=== PATIENT | male | born 1935 | race Hispanic/Latino ===

== ENCOUNTER 2020-01-13 13:04 | Emergency (ER) | payer MEDICARE ==
[2020-01-13 13:58] LABS: #Lymphocytes 0.7 thou/uL (1.20-3.40); #Monocytes 0.3 thou/uL (0.11-0.59); #Neutrophils 2.8 thou/uL (1.40-6.50); %Basophils 0.3 % (0.0-1.0); %Lymphocytes 18.5 % (21.0-51.0); %Monocytes 7.6 % (0.0-10.0); %Neutrophils 73.6 % (42.0-75.0); Hemoglobin 14.7 g/dL (14.0-18.0); Mean Corpuscular HGB CONC 34.7 g/dL (32.0-36.0); Mean Corpuscular Hemoglobin 32.4 pg (27.0-31.0); Mean Corpuscular Volume 93.4 fL (78.0-98.0); Mean Platelet Volume 7.8 fL (7.4-10.4); Platelet Count 98 thou/uL (130-400); RBC Distribution Width 11.4 % (11.5-14.5); Red Blood Cell (RBC) Count 4.55 mill/uL (4.70-6.10); White Blood Cell (WBC) Count 3.8 thou/uL (4.8-10.8)
[2020-01-13 14:01] LABS: ALT (SGPT) 11 U/L (8-55); AST (SGOT) 28 U/L (5-34); Albumin 3.8 g/dL (3.4-4.8); Alkaline Phosphatase 54 U/L (40-110); Anion Gap 17 mmol/L (10-20); BUN (Urea Nitrogen) 19 mg/dL (8.4-25.7); Bilirubin, Total 0.6 mg/dL (0.2-1.2); CK (CPK) 729 U/L (30-200); Calc. Creatinine Clearance 0 mL/min (70-130); Calcium 8.5 mg/dL (7.8-10.44); Carbon Dioxide 24 mmol/L (23-31); Chloride 102 mmol/L (98-107); Estimated GFR-MDRD 53; Globulin 3.4 g/dL (2.4-3.5); Glucose 113 mg/dL (83-110); Potassium 4.1 mmol/L (3.5-5.1); Protein, Total 7.2 g/dL (5.8-8.1); Sodium 139 mmol/L (136-145)
[2020-01-13 14:12] LABS: Large Platelets SLIGHT; MDiff Complete? YES; Platelet Morphology Comment Appears Decreased; RBC Morphology Normal
--- NOTE | 2020-01-13 14:15 | RAD ---
Frontal radiograph chest: 01/13/2020 COMPARISON: 12/09/2019 History: Weakness FINDINGS: Patchy increased linear density with associated groundglass opacity/airspace disease suspec jorden in the left perihilar region and both lung bases, left greater than right, new when compared to the 01/08/2010 exam. IMPRESSION: Nonspecific interstitial and groundglass opacity in the lung bases. Findings may be relat ed to pulmonary edema. Infectious pneumonitis, including atypical infectious pneumonitis, such as Covid 19, are possibilities.
[2020-01-13] MEDS ORDERED: Dexamethasone 10 MG/ML VIAL ONE (16:41)
[2020-01-13 17:02] LABS: Bacteria/HPF None Seen HPF (None Seen); Bilirubin Negative (Negative); Blood, Urine 3+ (Negative); Clarity Clear (Clear); Glucose, Urine (Dipstick) Normal (Negative); Ketone, Urine 10 mg/dL (Negative); Leukocyte Negative Leu/uL (Negative); Mucous/LPF 1+ LPF (<2+); Nitrite Negative (Negative); Protein, Urine (Dipstick) 100 mg/dL (Neg-Trace); RBC/HPF 0-3 HPF (0-3); Specific Gravity, Urine 1.022 (1.002-1.036); Squamous Epithelial 0-3 HPF (0-3); Urobilinogen Normal mg/dL (Less than 2); WBC/HPF 0-3 HPF (0-3); pH, Urine 5.5 (5.0-9.0)
[2020-01-14 10:48] LABS: SARS-CoV-2 MS2 Positive; SARS-CoV-2 N Gene Positive; SARS-CoV-2 S Gene Positive; SARS-CoV-2 by NAA DETECTED (NotDetected); SARS-CoV-2 orf1ab Positive
== END 2020-01-13 19:08 | disposition home or self-care (01) ==
LOC: ERS 13:04
DX: U07.1 COVID-19 (principal); R53.1 Weakness; I10 Essential (primary) hypertension; Z79.899 Other long term (current) drug therapy
CPT/HCPCS: 71045; 80053; 82550; 84484; 85025; 93005; U0003; 81003; 81015; 87635; J1100

== ENCOUNTER 2020-01-18 06:57 | Inpatient (IN) | payer MEDICARE ==
[2020-01-18 07:50] LABS: #Basophils 0.1 thou/uL (0.0-0.2); #Lymphocytes 0.5 thou/uL (1.20-3.40); #Monocytes 0.4 thou/uL (0.11-0.59); #Neutrophils 13.9 thou/uL (1.40-6.50); %Basophils 0.9 % (0.0-1.0); %Eosinophils 0.1 % (0.0-10.0); %Lymphocytes 3.5 % (21.0-51.0); %Monocytes 2.6 % (0.0-10.0); %Neutrophils 92.8 % (42.0-75.0); Hemoglobin 16.1 g/dL (14.0-18.0); Mean Corpuscular HGB CONC 33.6 g/dL (32.0-36.0); Mean Corpuscular Hemoglobin 31.8 pg (27.0-31.0); Mean Corpuscular Volume 94.7 fL (78.0-98.0); Mean Platelet Volume 7.7 fL (7.4-10.4); Platelet Count 193 thou/uL (130-400); RBC Distribution Width 11.5 % (11.5-14.5); Red Blood Cell (RBC) Count 5.08 mill/uL (4.70-6.10)
[2020-01-18 08:03] LABS: ALT (SGPT) 16 U/L (8-55); AST (SGOT) 33 U/L (5-34); Albumin 3.6 g/dL (3.4-4.8); Alkaline Phosphatase 58 U/L (40-110); Anion Gap 22 mmol/L (10-20); BUN (Urea Nitrogen) 22 mg/dL (8.4-25.7); Bilirubin, Total 1.3 mg/dL (0.2-1.2); Calc. Creatinine Clearance 0 mL/min (70-130); Carbon Dioxide 21 mmol/L (23-31); Chloride 100 mmol/L (98-107); Globulin 4.2 g/dL (2.4-3.5); Glucose 113 mg/dL (83-110); Potassium 3.8 mmol/L (3.5-5.1); Protein, Total 7.8 g/dL (5.8-8.1); Sodium 139 mmol/L (136-145)
--- NOTE | 2020-01-18 08:10 | RAD ---
Chest AP view INDICATION: 84-year-old male with dyspnea and history of Covid 19 diagnosis COMPARISON: Prior examination dated 01/05/2020 FINDINGS: Lungs: There is worsening bilateral pneumonia Cardiac silhouette: Mild cardiomegaly is stable Pulmonary vasculature: Normal Pleural spaces: No pleural effusion or pneumothorax is demonstrated. Upper abdomen: No abnormality seen. Osseous structures: No acute osseous abnormality. Additional findings: None. IMPRESSION: Worsening bilateral pneumonia. Stable mild cardiomegaly.
--- NOTE | 2020-01-18 08:39 | CT ---
Exam: CT angiogram of the chest HISTORY: Dyspnea. COVID positive patient. COMPARISON: None TECHNIQUE: CT angiogram of the chest is performed in the axial plane. Three-dimensional reformatted i mages are submitted for interpretation FINDINGS: Mediastinum: No mass, lymphadenopathy or hematoma. HEART: Normal size. No significant pericardial fluid. Aorta: No aneurysm or dissection Upper solid abdominal viscera: No abnormality enhancement. Trachea and central bronchi: Patent Pleural spaces: No effusion Lung parenchyma: There are scattered groundglass opacities throughout the lung parenchyma. Many of th madhuri opacities have a peripheral distribution. Pneumothorax: None Osseous structures: No lytic or blastic lesions Pulmonary arteries: Adequate contrast opacification pulmonary arterial system to the level of segment al arteries. No filling defect to suggest pulmonary embolism IMPRESSION: 1. No evidence of pulmonary artery embolism to level of the segmental arteries 2. Peripheral groundglass opacities, consistent with COVID 19 pneumonia.
[2020-01-18] MEDS ORDERED: Azithromycin 500 MG VIAL ONE (08:54)
[2020-01-18] MEDS ORDERED: Cefepime 1 GM in Sodium Chloride 0.9% 100 ML IVPB SCH (10:00)
[2020-01-18] MEDS ORDERED: Ondansetron PF 4 MG/2 ML Vial IVP PRN (10:04)
[2020-01-18] MEDS ORDERED: Bisacodyl 10 MG SUPP PR PRN (10:04)
[2020-01-18] MEDS ORDERED: Acetaminophen 500 MG TAB ONE (10:11)
[2020-01-18] MEDS ORDERED: methylPREDNISolone Sod Succ 40 MG VIAL IVP SCH (12:00)
--- NOTE | 2020-01-18 12:14 | HP ---
REASON FOR ADMISSION: COVID-19 pneumonia, which is severe and he is on high- flow oxygen; acute respiratory failure due to COVID-19 pneumonia. HISTORY OF PRESENTING ILLNESS: The patient says he got short of breath from last 2 days, which has been progressively getting worse. He has been diagnosed with COVID-19 pneumonia 2 weeks back. His was hospitalized here as well, and she just got home. The patient had come to emergency room on the 13 of January and was given a prescription for dexamethasone. He normally ambulates by himself. He was getting short winded even for minimal mobilization at home. Finally, his called EMS and the patient was brought here. On arrival, the patient had saturations of 80% on room air and had to be placed on high-flow oxygen. Mr. Cruz is very hard of hearing, and likely, he has sensorineural deafness and he currently does not have his hearing aid. He has no complaints of chest pain or palpitation. PAST MEDICAL AND SURGICAL HISTORY: Hypothyroidism. Has not had any prior surgeries. CURRENT MEDICATIONS: 1. Levothyroxine 88 mcg p.o. daily 2. Aspirin 325 mg p.o. daily. 3. Dexamethasone 6 mg p.o. daily from 01/13/2020. ALLERGIES: NO KNOWN DRUG ALLERGIES. PERSONAL HISTORY: He does not abuse alcohol or drugs. No history of smoking. FAMILY HISTORY: Patient is to his for nearly 64 years. They have5 kids. He ambulates by himself. Mother at the age of 97 from natural causes. Father in his 80s from natural causes. CODE STATUS: The patient does not want to be intubated, but the rest of the resuscitation measures are okay including chest compression. This was discussed with the patient and his , Ms. Naida Montano. REVIEW OF SYSTEMS: CONSTITUTIONAL: Negative for weight loss or gain, ability to conduct usual activities. SKIN: Negative for rash, itching. EYES: Negative for double vision, pain. ENT/MOUTH: Negative for nose bleeding, neck stiffness, pain, tenderness. CARDIOVASCULAR: Negative for palpitations, dyspnea on exertion, orthopnea. RESPIRATORY: Negative for shortness of breath, wheezing, cough, hemoptysis, fever or night sweats. GASTROINTESTINAL: Negative for poor appetite, abdominal pain, heartburn, nausea, vomiting, constipation, or diarrhea. GENITOURINARY: Negative for urgency, frequency, dysuria, nocturia. MUSCULOSKELETAL: Negative for pain, swelling. NEUROLOGIC/PSYCHIATRIC: Negative for anxiety, depression. ALLERGY/IMMUNOLOGIC: Negative for skin rash, bleeding tendency. PHYSICAL EXAMINATION: VITAL SIGNS: Blood pressure 140/70, pulse 82 per minute, respiratory rate is 22 per minute, temperature 101.2 degrees Fahrenheit, and saturating at 98% on high- flow, 92% on 4 L, 80% on room air. GENERAL: The patient is an 84-year-old male, who is currently in mild respiratory distress, but he is comfortable on high-flow oxygen. HEENT: Oral cavity, mucous membranes are dry. No exudates or congestion. CARDIOVASCULAR SYSTEM: S1 and S2 heard. Regular rhythm. RESPIRATORY SYSTEM: Air entry 1+ bilateral. There are rales plus rhonchi bilaterally. ABDOMEN: Soft, bowel sounds heard. No tenderness, rigidity, or guarding. EXTREMITIES: No peripheral edema or calf tenderness. VASCULAR SYSTEM: Peripheral pulses are 1+ bilaterally. No ischemic ulcers or gangrene. CENTRAL NERVOUS SYSTEM: No gross focal motor deficits noted. The patient moves all 4 extremities. He is very hard of hearing. PSYCHIATRIC SYSTEM : No obvious hallucinations or delusions. LABORATORY DATA: White count of 15, H and H are 16 and 48, platelet count 193, MCV is 94 with 92% neutrophils. D-dimer is 3.0, serum bicarb 21 BUN 22, creatinine 1.1. Lactic acid 6.8, serum glucose 113, total bilirubin 1.3. LFTs are within normal limits. Troponin I 0.02. BNP 62. Albumin is 3.6. CT angio of the chest done shows no evidence of PE. The patient has peripheral ground-glass opacities consistent with COVID-19 pneumonia. EKG done shows normal sinus rhythm at 98 beats per minute. There is poor R-wave progression. There are Q-waves seen in leads II, III, and aVF. CLINICAL IMPRESSION AND PLAN: The patient will be admitted to medical floor for COVID-19 pneumonia with acute respiratory failure with hypoxia on high-flow oxygen. The patient seems to have severe infiltrates on the CT chest. He was diagnosed nearly 2 weeks back, per who also was hospitalized here. We will place him on Solu-Medrol 20 mg IV q.8 hourly, and cefepime 1 g q.12 hourly in view of possible opportunistic infections with history of COVID. We will continue his levothyroxine and aspirin 81 mg. He will be on albuterol inhaler q.6 hourly. We will consult Dr. Moran for Infectious Disease. The patient has potential to get worse in view of advanced age and severe infiltrates on the x-ray. If he gets worse, he will be moved down to [facility]. Job ID: [id number] [facility]
[2020-01-18] MEDS: Albuterol 200 PUFF (6.7GM INHALER) INH SCH ×2 (13:30→19:34)
[2020-01-18] MEDS ORDERED: Iopamidol-370 76% 500 ML 1 ML ONE (13:40)
[2020-01-18 16:04] VITALS: BMI 27.6
[2020-01-18] MEDS: Cefepime 1 GM in Sodium Chloride 0.9% 100 ML IVPB SCH (16:31)
[2020-01-18] MEDS: Sodium Chloride 0.9% 1,000 ML IV SCH (19:00)
[2020-01-18] MEDS: Famotidine 20 MG TAB PO SCH (19:35)
[2020-01-19] MEDS: Albuterol 200 PUFF (6.7GM INHALER) INH SCH ×4 (00:24→18:27)
[2020-01-19] MEDS: methylPREDNISolone Sod Succ 40 MG VIAL IVP SCH ×3 (00:24→16:16)
[2020-01-19] MEDS: Cefepime 1 GM in Sodium Chloride 0.9% 100 ML IVPB SCH ×2 (04:45→16:16)
[2020-01-19] MEDS: Levothyroxine Sodium 88 MCG TAB PO SCH (05:35)
[2020-01-19 06:51] LABS: Hemoglobin 14.6 g/dL (14.0-18.0); Mean Corpuscular HGB CONC 33.2 g/dL (32.0-36.0); Mean Corpuscular Hemoglobin 31.6 pg (27.0-31.0); Mean Corpuscular Volume 95.2 fL (78.0-98.0); Mean Platelet Volume 7.5 fL (7.4-10.4); Platelet Count 162 thou/uL (130-400); RBC Distribution Width 11.4 % (11.5-14.5); Red Blood Cell (RBC) Count 4.63 mill/uL (4.70-6.10); White Blood Cell (WBC) Count 13.1 thou/uL (4.8-10.8)
[2020-01-19 07:06] LABS: ALT (SGPT) 13 U/L (8-55); AST (SGOT) 29 U/L (5-34); Albumin 3.1 g/dL (3.4-4.8); Alkaline Phosphatase 51 U/L (40-110); Anion Gap 19 mmol/L (10-20); BUN (Urea Nitrogen) 19 mg/dL (8.4-25.7); Bilirubin, Total 0.8 mg/dL (0.2-1.2); Calc. Creatinine Clearance 75 mL/min (70-130); Calcium 8.4 mg/dL (7.8-10.44); Carbon Dioxide 19 mmol/L (23-31); Chloride 106 mmol/L (98-107); Globulin 3.7 g/dL (2.4-3.5); Glucose 117 mg/dL (83-110); Potassium 3.9 mmol/L (3.5-5.1); Protein, Total 6.8 g/dL (5.8-8.1); Sodium 140 mmol/L (136-145)
[2020-01-19] MEDS: Aspirin Chewable 81 MG TAB PO SCH (08:35)
[2020-01-19] MEDS: Enoxaparin Sodium 40 MG/0.4 ML SYRINGE SC SCH (08:35)
[2020-01-19] MEDS: Famotidine 20 MG TAB PO SCH ×2 (08:35→19:54)
[2020-01-19 10:23] LABS: Band 13 % (5-11); Lymphocytes 4 % (21-51); MDiff Complete? YES; Monocytes 2 % (0-10); Neutrophil 80 % (42-75); RBC Morphology Normal; Reactive Lymphocytes 1 % (0-10)
[2020-01-19] MEDS: Sodium Chloride 0.9% 1,000 ML IV SCH ×2 (12:49→14:50)
--- NOTE | 2020-01-19 13:01 | PQF ---
CLINICAL DOCUMENTATION CLARIFICATION FORM: Dear Dr. Walton Date: 01/19/20 Please exercise your independent, professional judgment in responding to the clarification form. Clinical indicators are provided on the bottom of this form for your review. Please check appropriate box(es): [ x ] Sepsis due to: _covid 19 pna [ ] Severe sepsis with associated acute organ dysfunction: [ ] Acute Respiratory Failure [ ] Acute Kidney injury w/o ATN [ ] Acute Kidney Injury w ATN [ ] Encephalopathy (metabolic) (septic) [ ] Disseminated Intravascular Coagulopathy (DIC) [ ] Hepatic Failure [ ] Additional/Other: please specify: [ ] Localized infection without sepsis [ ] SIRS due to non-infectious process (please specify etiology) [ ] with organ dysfunction [ ] without organ dysfunction [ ] Other diagnosis [ ] Unable to determine In addition, please specify: Present on Admission (POA): [ x ] Yes [ ] No [ ] Unable to determine For continuity of documentation, please document condition throughout progress notes and discharge summary. Thank You. To be completed by CDI/Coding staff for physician review: CLINICAL INDICATORS - SIGNS / SYMPTOMS / LABS / RESULTS AND LOCATION IN MR ER VITALS: PULSE 101 RR 22 TEMP 101.2 WBC 12/3: 15.0 BANDS 12/4: 13 LACTIC ACID 01/17: 6.8 CRP 01/17: 16.53 RISK FACTORS / RESULTS AND LOCATION IN MR ADVANCED AGE (H&P) SEVERE INFILTRATES ON XRAY (H&P) COVID 19 (H&P) PNEUMONIA (H&P) ACUTE RESPIRATORY FAILURE (H&P) TREATMENTS / RESULTS AND LOCATION IN MR IV AZITHROMYCIN (ER) IV FLUIDS (ER-PRESENT) IV CEFEPIME (01/17-PRESENT) BLOOD CULTURES 01/17 CDS Signature: Catrnia Capone RN Phone #: [phone] Date: 01/19/20 This is a permanent part of the Medical Record [facility]
--- NOTE | 2020-01-20 01:52 | CON ---
DATE OF CONSULTATION: 01/19/2020 REASON: COVID pneumonia. HISTORY OF PRESENT ILLNESS: Mr. Cruz is an 84-year-old with a history of hypothyroidism. The patient was initially seen at the emergency room on January 12, had been sick with generalized weakness, but no respiratory symptoms. He was given Decadron apparently, prescribed by the emergency room, and then sent home. Now, he comes back with worsening respiratory symptoms. He had on arrival BP 118/82, heart rate 101, respirations 22, temperature 101.2, O2 saturation 92% on 4 L. His lungs are described as no respiratory distress and clear breath sounds. Heart is tachycardic, but heart sounds are normal. Abdomen is soft. Other findings included sodium 139, creatinine 1.13, GFR 62, bilirubin 1.3. White cell count is 15,000, now 13; hemoglobin 14.6; platelets 162 with 13% bands. D-dimer 3.03. He was given methylprednisolone 20 mg q.8 hours, enoxaparin, cefepime. Currently, Mr. Cruz is with high-flow nasal cannula O2, satting 97%. He has pretty pronounced hearing loss and it is difficult to communicate with him. He denies any headaches. He has moderate dyspnea and not coughing much. No abdominal pain. Voiding without difficulty. He moves all extremities equally. MEDICAL HISTORY: Hypothyroidism. SURGICAL HISTORY: None. ALLERGIES: NONE. MEDICATIONS: He had been on Decadron, prescribed by the emergency room. PHYSICAL EXAMINATION: GENERAL: He appears comfortable right now. VITAL SIGNS: His O2 saturations are 97% with high-flow nasal cannula at 50 L, BP 160/72, heart rate is 72. SKIN: Exam showed a few tattoos. Peripheral IV access. He is voiding in the urinal. No lymphadenopathy. LUNGS: Symmetric air entry. No obvious crackles or wheezing. HEART: S1, S2, regular rate. ABDOMEN: Soft, not distended or tender. No ascites. No bladder distention. EXTREMITIES: He moves all extremities equally. No edema. Pulses 1+ in dorsalis pedis. NEUROLOGIC: He has severe hearing impairment, but otherwise neuro examination nonfocal. LABORATORY DATA: The latest findings have SARS-CoV RNA PCR positive from January 12. His D-dimer is 3.03. CRP was 16.53. ASSESSMENT: History of hypothyroidism, now with severe SARS-CoV-[address] scan showed diffuse ground-glass opacities. I do not think he would benefit from remdesivir at this point in time. He will continue on corticosteroids. Unfortunately, he was given Decadron in the emergency room and sent home on Decadron and Decadron or any corticosteroids given in the early phase of illness will blunt the innate immune response and will inhibit interferon production and has been associated with worse outcomes and it should be used only in more advanced phases of COVID-19. He is at high risk for further deterioration and requirement for BiPAP and intubation. Job ID: [id number]
[2020-01-20] MEDS: Albuterol 200 PUFF (6.7GM INHALER) INH SCH ×4 (03:14→18:13)
[2020-01-20] MEDS: Cefepime 1 GM in Sodium Chloride 0.9% 100 ML IVPB SCH ×2 (04:43→16:51)
[2020-01-20] MEDS: Levothyroxine Sodium 88 MCG TAB PO SCH (04:43)
[2020-01-20] MEDS: hydrALAZINE 20 MG/ML VIAL SLOW IVP PRN (05:55)
[2020-01-20] MEDS: Famotidine 20 MG TAB PO SCH ×2 (08:55→20:49)
[2020-01-20] MEDS: Aspirin Chewable 81 MG TAB PO SCH (08:56)
[2020-01-20] MEDS: Enoxaparin Sodium 40 MG/0.4 ML SYRINGE SC SCH (08:56)
[2020-01-20] MEDS: methylPREDNISolone Sod Succ 40 MG VIAL IVP SCH ×4 (08:56→23:33)
[2020-01-20] MEDS: Sodium Chloride 0.9% 1,000 ML IV SCH (08:57)
--- NOTE | 2020-01-20 09:08 | PDOC.HOSPP ---
- Subjective Encounter Date: 01/19/20 Encounter Time: 11:15 Subjective: pt up in bed still has sob. He is on high flow. - Objective Vital Signs & Weight: Vital Signs (12 hours) Temp Pulse Resp BP BP Pulse Ox 01/20/20 08:00 100.1 F H 70 22 H 182/69 H 99 01/20/20 07:00 66 20 132/84 97 01/20/20 06:55 64 22 H 186/73 H 96 01/20/20 06:44 68 22 H 167/66 H 97 01/20/20 06:30 68 170/68 H 01/20/20 05:55 61 189/99 H 01/20/20 04:57 99.4 F 63 18 186/75 H 96 01/20/20 00:00 99.1 F 61 22 H 165/68 H 92 L Weight Weight 187 lb I&O: 01/19/20 01/20/20 01/21/20 06:59 06:59 06:59 Intake Total 1240 2150 Output Total 400 Balance 1240 1750 Result Diagrams: 01/19/20 06:08 01/19/20 06:08 Hospitalist ROS - Review of Systems Respiratory: reports: cough, shortness of breath Cardiovascular: denies: chest pain, palpitations, orthopnea, paroxysmal noc. dyspnea, edema, light headedness, other Gastrointestinal: denies: nausea, vomiting, abdominal pain, diarrhea, constipation, melena, hematochezia, other - Medication Medications: Active Medications Generic Name Dose Route Start Last Admin Trade Name Freq PRN Reason Stop Dose Admin Albuterol Sulfate 2 puff 01/18/20 13:00 01/20/20 06:51 Albuterol 200 Puff (6.7gm Inhaler) INH 2 puff [id number] NAFISA Administration Aspirin 81 mg 01/19/20 09:00 01/19/20 08:35 Aspirin Chewable 81 Mg Tab PO 81 mg DAILY NAFISA Administration Enoxaparin Sodium 40 mg 01/19/20 09:00 01/19/20 08:35 Enoxaparin Sodium 40 Mg/0.4 Ml Syringe SC 40 mg 0900 NAFISA Administration Famotidine 20 mg 01/18/20 21:00 01/19/20 19:54 Famotidine 20 Mg Tab PO 20 mg BID NAFISA Administration Hydralazine HCl 10 mg 01/20/20 05:09 01/20/20 05:55 Hydralazine 20 Mg/Ml Vial SLOW IVP 10 mg Q4H PRN Administration SBP>170 Cefepime HCl 1 gm/ Sodium 100 mls @ 200 mls/hr 01/18/20 16:00 01/20/20 04:43 Chloride IVPB 100 mls 0400,1600 NAFISA Administration Sodium Chloride 1,000 mls @ 50 mls/hr 01/18/20 17:30 01/19/20 14:50 Normal Saline 0.9% IV 1,000 mls .Q20H NAFISA Administration Levothyroxine Sodium 88 mcg 01/19/20 06:00 01/20/20 04:43 Levothyroxine Sodium 88 Mcg Tab PO 88 mcg 0600 NAFISA Administration Methylprednisolone Sodium Succinate 20 mg 01/18/20 23:59 01/20/20 00:00 Methylprednisolone Sod Succ 40 Mg Vial IVP 20 mg 0800,1600,2359 NAFISA Administration - Exam Neck: negative: supple, symmetric, no JVD, no thyromegaly, no lymphadenopathy, no carotid bruit, JVD Heart: negative: RRR, no murmur, no gallops, no rubs, normal peripheral pulses, irregular, diminshed peripheral pulses, murmur present, II/IV, III/IV Respiratory: rhonchi Gastrointestinal: negative: soft, non-tender, non-distended, normal bowel sounds, no palpable masses, no hepatomegaly, no splenomegaly, no bruit, no guarding, no rigidity, tender to palpation, distended, diminished bowl sounds, voluntary guarding Hosp A/P (1) Acute respiratory failure with hypoxia Code(s): J96.01 - ACUTE RESPIRATORY FAILURE WITH HYPOXIA Status: Acute (2) COVID-19 Code(s): U07.1 - COVID-19 Status: Acute (3) Hypothyroidism Code(s): E03.9 - HYPOTHYROIDISM, UNSPECIFIED Status: Acute - Plan will continue abx for now until pt seen by ID. He had COVID in December and pt comes back in for worsening sob. pt on dvt ppx/steroids on high flow. High risk for decompensation.
[2020-01-20] MEDS: Acetaminophen 325 MG TAB PO PRN (09:10)
--- NOTE | 2020-01-20 15:56 | PDOC.HOSPP ---
- Subjective Encounter Date: 01/20/20 Encounter Time: 15:54 Subjective: F/u: COVID The patient still has a dry cough, otherwise is feeling better. He has not walked today. He still is on high flow nasal cannula He states he has not walked today - Objective Vital Signs & Weight: Vital Signs (12 hours) Temp Pulse Resp BP BP Pulse Ox 01/20/20 11:59 98.7 F 60 20 152/70 H 95 01/20/20 09:20 135/77 01/20/20 08:50 93 L 01/20/20 08:00 100.1 F H 70 22 H 182/69 H 99 01/20/20 07:00 66 20 132/84 97 01/20/20 06:55 64 22 H 186/73 H 96 01/20/20 06:44 68 22 H 167/66 H 97 01/20/20 06:30 68 170/68 H 01/20/20 05:55 61 189/99 H 01/20/20 04:57 99.4 F 63 18 186/75 H 96 Weight Weight 187 lb I&O: 01/19/20 01/20/20 01/21/20 06:59 06:59 06:59 Intake Total 1240 2150 Output Total 400 Balance 1240 1750 Result Diagrams: 01/19/20 06:08 01/19/20 06:08 Hospitalist ROS - Review of Systems Constitutional: reports: fever. denies: chills - Medication Medications: Active Medications Generic Name Dose Route Start Last Admin Trade Name Freq PRN Reason Stop Dose Admin Acetaminophen 650 mg 01/18/20 10:04 01/20/20 09:10 Acetaminophen 325 Mg Tab PO 650 mg Q4H PRN Administration Headache/Fever/Mild Pain (1-3) Albuterol Sulfate 2 puff 01/18/20 13:00 01/20/20 13:22 Albuterol 200 Puff (6.7gm Inhaler) INH 2 puff [id number] NAFISA Administration Aspirin 81 mg 01/19/20 09:00 01/20/20 08:56 Aspirin Chewable 81 Mg Tab PO 81 mg DAILY NAFISA Administration Enoxaparin Sodium 40 mg 01/19/20 09:00 01/20/20 08:56 Enoxaparin Sodium 40 Mg/0.4 Ml Syringe SC 40 mg 0900 NAFISA Administration Famotidine 20 mg 01/18/20 21:00 01/20/20 08:55 Famotidine 20 Mg Tab PO 20 mg BID NAFISA Administration Hydralazine HCl 10 mg 01/20/20 05:09 01/20/20 05:55 Hydralazine 20 Mg/Ml Vial SLOW IVP 10 mg Q4H PRN Administration SBP>170 Cefepime HCl 1 gm/ Sodium 100 mls @ 200 mls/hr 01/18/20 16:00 01/20/20 04:43 Chloride IVPB 100 mls 0400,1600 NAFISA Administration Sodium Chloride 1,000 mls @ 50 mls/hr 01/18/20 17:30 01/20/20 08:57 Normal Saline 0.9% IV 1,000 mls .Q20H NAFISA Administration Levothyroxine Sodium 88 mcg 01/19/20 06:00 01/20/20 04:43 Levothyroxine Sodium 88 Mcg Tab PO 88 mcg 0600 NAFISA Administration Methylprednisolone Sodium Succinate 20 mg 01/18/20 23:59 01/20/20 08:56 Methylprednisolone Sod Succ 40 Mg Vial IVP 20 mg 0800,1600,2359 NAFISA Administration - Exam General Appearance: NAD, awake alert Eye: PERRL, anicteric sclera ENT: normocephalic atraumatic, no oropharyngeal lesions Neck: no JVD Heart: RRR, no murmur, no gallops, no rubs Respiratory: negative: no rales Respiratory - other findings: diminished breath sounds bilaterally Gastrointestinal: soft, non-tender, non-distended, normal bowel sounds Extremities: no cyanosis, no clubbing, no edema Skin: normal turgor, no lesions, no rashes Hosp A/P - Plan CTA: ground glass opacities This is an 84 year old who was recently diagnosed with COVID, received steroids and then readmitted for worsening respiratory failure Acute hypoxic respiratory failure secondary to COVID pneumonia - CTA showed ground glass opacities -continue cefepime and steroids 20 mg q8 hours - currently on high flow nasal cannula, titrate sats to 92% - add tessalon pearls for cough Hypothyroidism - continue levothyroxine Leukocytosis - WBC of 13 initially, will recheck CBC today
[2020-01-20 16:50] LABS: Hemoglobin 14.2 g/dL (14.0-18.0); Mean Corpuscular HGB CONC 36.2 g/dL (32.0-36.0); Mean Corpuscular Hemoglobin 34.3 pg (27.0-31.0); Mean Corpuscular Volume 94.7 fL (78.0-98.0); Mean Platelet Volume 7.3 fL (7.4-10.4); Platelet Count 174 thou/uL (130-400); RBC Distribution Width 11.5 % (11.5-14.5); Red Blood Cell (RBC) Count 4.13 mill/uL (4.70-6.10); White Blood Cell (WBC) Count 9.8 thou/uL (4.8-10.8)
[2020-01-20] MEDS ORDERED: Benzonatate 100 MG CAP PO SCH (17:30)
[2020-01-20] MEDS: Benzonatate 100 MG CAP PO SCH (20:49)
[2020-01-21] MEDS: Albuterol 200 PUFF (6.7GM INHALER) INH SCH ×4 (00:15→18:15)
[2020-01-21] MEDS: Cefepime 1 GM in Sodium Chloride 0.9% 100 ML IVPB SCH ×2 (04:26→15:26)
[2020-01-21] MEDS: Senokot S 8.6-50 MG TAB PO PRN (04:27)
[2020-01-21] MEDS: Levothyroxine Sodium 88 MCG TAB PO SCH (05:08)
[2020-01-21] MEDS: Sodium Chloride 0.9% 1,000 ML IV SCH (05:08)
[2020-01-21 05:54] LABS: Hemoglobin 13.4 g/dL (14.0-18.0); Mean Corpuscular HGB CONC 32.5 g/dL (32.0-36.0); Mean Corpuscular Hemoglobin 30.8 pg (27.0-31.0); Mean Corpuscular Volume 94.8 fL (78.0-98.0); Mean Platelet Volume 7.2 fL (7.4-10.4); Platelet Count 192 thou/uL (130-400); RBC Distribution Width 11.4 % (11.5-14.5); Red Blood Cell (RBC) Count 4.36 mill/uL (4.70-6.10); White Blood Cell (WBC) Count 7.8 thou/uL (4.8-10.8)
[2020-01-21 06:18] LABS: Anion Gap 14 mmol/L (10-20); BUN (Urea Nitrogen) 19 mg/dL (8.4-25.7); Calc. Creatinine Clearance 83 mL/min (70-130); Carbon Dioxide 21 mmol/L (23-31); Chloride 108 mmol/L (98-107); Glucose 150 mg/dL (83-110); Potassium 3.4 mmol/L (3.5-5.1); Sodium 140 mmol/L (136-145)
[2020-01-21] MEDS ORDERED: Potassium Chloride 20 MEQ TAB PO SCH (08:00)
[2020-01-21] MEDS: Famotidine 20 MG TAB PO SCH ×2 (08:13→20:46)
[2020-01-21] MEDS: Aspirin Chewable 81 MG TAB PO SCH (08:13)
[2020-01-21] MEDS: Benzonatate 100 MG CAP PO SCH ×3 (08:13→20:47)
[2020-01-21] MEDS: methylPREDNISolone Sod Succ 40 MG VIAL IVP SCH ×2 (08:13→15:28)
[2020-01-21] MEDS: Enoxaparin Sodium 40 MG/0.4 ML SYRINGE SC SCH (08:17)
--- NOTE | 2020-01-21 15:19 | PDOC.HOSPP ---
- Subjective Encounter Date: 01/21/20 Encounter Time: 13:00 Subjective: F/u: COVID The patient feels slightly better compared to yesterday. He has a dry cough still. He was saturating 89% on high flow nasal cannula. He has not ambulated today yet - Objective Vital Signs & Weight: Vital Signs (12 hours) Temp Pulse Resp BP Pulse Ox 01/21/20 10:42 92 L 01/21/20 09:00 98.4 F 70 15 166/86 H 90 L 01/21/20 08:15 98.1 F 62 18 168/76 H 95 01/21/20 05:00 65 166/71 H 92 L Weight Weight 187 lb I&O: 01/20/20 01/21/20 01/22/20 06:59 06:59 06:59 Intake Total 2150 1700 Output Total 400 Balance 1750 1700 Result Diagrams: 01/21/20 05:26 01/21/20 05:26 Hospitalist ROS - Review of Systems Constitutional: denies: fever, chills - Medication Medications: Active Medications Generic Name Dose Route Start Last Admin Trade Name Freq PRN Reason Stop Dose Admin Acetaminophen 650 mg 01/18/20 10:04 01/20/20 09:10 Acetaminophen 325 Mg Tab PO 650 mg Q4H PRN Administration Headache/Fever/Mild Pain (1-3) Albuterol Sulfate 2 puff 01/18/20 13:00 01/21/20 13:01 Albuterol 200 Puff (6.7gm Inhaler) INH 2 puff [id number] NAFISA Administration Aspirin 81 mg 01/19/20 09:00 01/21/20 08:13 Aspirin Chewable 81 Mg Tab PO 81 mg DAILY NAFISA Administration Benzonatate 100 mg 01/20/20 21:00 01/21/20 08:13 Benzonatate 100 Mg Cap PO 100 mg TID NAFISA Administration Enoxaparin Sodium 40 mg 01/19/20 09:00 01/21/20 08:17 Enoxaparin Sodium 40 Mg/0.4 Ml Syringe SC 40 mg 0900 NAFISA Administration Famotidine 20 mg 01/18/20 21:00 01/21/20 08:13 Famotidine 20 Mg Tab PO 20 mg BID NAFISA Administration Hydralazine HCl 10 mg 01/20/20 05:09 01/20/20 05:55 Hydralazine 20 Mg/Ml Vial SLOW IVP 10 mg Q4H PRN Administration SBP>170 Cefepime HCl 1 gm/ Sodium 100 mls @ 200 mls/hr 01/18/20 16:00 01/21/20 04:26 Chloride IVPB 100 mls 0400,1600 NAFISA Administration Sodium Chloride 1,000 mls @ 50 mls/hr 01/18/20 17:30 01/21/20 05:08 Normal Saline 0.9% IV Not Given .Q20H NAFISA Levothyroxine Sodium 88 mcg 01/19/20 06:00 01/21/20 05:08 Levothyroxine Sodium 88 Mcg Tab PO 88 mcg 0600 NAFISA Administration Methylprednisolone Sodium Succinate 20 mg 01/18/20 23:59 01/21/20 08:13 Methylprednisolone Sod Succ 40 Mg Vial IVP 20 mg 0800,1600,2359 NAFISA Administration Ondansetron HCl 4 mg 01/18/20 10:04 01/21/20 04:27 Ondansetron Pf 4 Mg/2 Ml Vial IVP 4 mg Q6H PRN Administration Nausea/Vomiting Senna/Docusate Sodium 2 tab 01/18/20 10:04 01/21/20 04:27 Senokot S 8.6-50 Mg Tab PO 2 tab BID PRN Administration Constipation Sodium Chloride 10 ml 01/21/20 09:00 01/21/20 08:17 Flush - Normal Saline 10 Ml Syringe IVF Not Given Q12HR NAFISA - Exam General Appearance: NAD, awake alert Eye: PERRL, anicteric sclera ENT: normocephalic atraumatic, no oropharyngeal lesions Neck: no JVD Heart: RRR, no murmur, no gallops, no rubs Respiratory - other findings: diminished breath sounds at the bases Gastrointestinal: soft, non-tender, non-distended, normal bowel sounds Extremities: no edema Skin: normal turgor, no lesions, no rashes Hosp A/P - Plan CTA: ground glass opacities This is an 84 year old who was recently diagnosed with COVID, received steroids and then readmitted for worsening respiratory failure Acute hypoxic respiratory failure secondary to COVID pneumonia - CTA showed ground glass opacities on admission, COVID + -continue cefepime and steroids 20 mg q8 hours - currently on high flow nasal cannula, titrate sats to 92% - continue tessalon pearls for cough - discontinue IV fluids Hypothyroidism - continue levothyroxine Leukocytosis - resolved
[2020-01-22] MEDS: Albuterol 200 PUFF (6.7GM INHALER) INH SCH ×4 (00:22→19:11)
[2020-01-22] MEDS: methylPREDNISolone Sod Succ 40 MG VIAL IVP SCH ×4 (00:22→20:48)
[2020-01-22] MEDS: Cefepime 1 GM in Sodium Chloride 0.9% 100 ML IVPB SCH ×2 (03:26→15:37)
[2020-01-22] MEDS: Levothyroxine Sodium 88 MCG TAB PO SCH (05:23)
[2020-01-22] MEDS: Famotidine 20 MG TAB PO SCH ×2 (08:22→20:48)
[2020-01-22] MEDS: Benzonatate 100 MG CAP PO SCH ×3 (08:22→20:48)
[2020-01-22] MEDS: Enoxaparin Sodium 40 MG/0.4 ML SYRINGE SC SCH (08:22)
[2020-01-22] MEDS: Aspirin Chewable 81 MG TAB PO SCH (08:22)
--- NOTE | 2020-01-22 16:31 | EKG ---
Test Reason : CHEST PAIN Blood Pressure : / mmHG Vent. Rate : 063 BPM Atrial Rate : 063 BPM P-R Int : 140 ms QRS Dur : 096 ms QT Int : 410 ms P-R-T Axes : 047 -12 027 degrees QTc Int : 419 ms Normal sinus rhythm Poor anterior R wave progression No previous ECGs available Confirmed by DR. Bradly CHEN ([id number]) on 01/22/2020 4:31:37 PM Referred By: TAVON Confirmed By:DR. Bradly CHEN
--- NOTE | 2020-01-22 18:45 | PDOC.HOSPP ---
- Subjective Encounter Date: 01/22/20 Encounter Time: 11:00 Subjective: F/u: COVID The patient is doing better and is less short of breath. He is still hypoxic to 89% . He did not ambulate much today. He still has a dry cough - Objective Vital Signs & Weight: Vital Signs (12 hours) Temp Pulse Resp BP Pulse Ox 01/22/20 15:55 98.2 F 86 16 157/54 H 92 L 01/22/20 12:00 98.5 F 64 20 161/89 H 93 L 01/22/20 08:25 97.7 F 70 18 161/78 H 91 L Weight Weight 187 lb I&O: 01/21/20 01/22/20 01/23/20 06:59 06:59 06:59 Intake Total 1700 1410 120 Output Total 400 Balance 1700 1010 120 Result Diagrams: 01/21/20 05:26 01/21/20 05:26 Hospitalist ROS - Review of Systems Constitutional: denies: fever, chills - Medication Medications: Active Medications Generic Name Dose Route Start Last Admin Trade Name Freq PRN Reason Stop Dose Admin Acetaminophen 650 mg 01/18/20 10:04 01/20/20 09:10 Acetaminophen 325 Mg Tab PO 650 mg Q4H PRN Administration Headache/Fever/Mild Pain (1-3) Albuterol Sulfate 2 puff 01/18/20 13:00 01/22/20 13:28 Albuterol 200 Puff (6.7gm Inhaler) INH 2 puff [id number] NAFISA Administration Aspirin 81 mg 01/19/20 09:00 01/22/20 08:22 Aspirin Chewable 81 Mg Tab PO 81 mg DAILY NAFISA Administration Benzonatate 100 mg 01/20/20 21:00 01/22/20 15:37 Benzonatate 100 Mg Cap PO 100 mg TID NAFISA Administration Enoxaparin Sodium 40 mg 01/19/20 09:00 01/22/20 08:22 Enoxaparin Sodium 40 Mg/0.4 Ml Syringe SC 40 mg 0900 NAFISA Administration Famotidine 20 mg 01/18/20 21:00 01/22/20 08:22 Famotidine 20 Mg Tab PO 20 mg BID NAFISA Administration Hydralazine HCl 10 mg 01/20/20 05:09 01/20/20 05:55 Hydralazine 20 Mg/Ml Vial SLOW IVP 10 mg Q4H PRN Administration SBP>170 Cefepime HCl 1 gm/ Sodium 100 mls @ 200 mls/hr 01/18/20 16:00 01/22/20 15:37 Chloride IVPB 100 mls 0400,1600 NAFISA Administration Levothyroxine Sodium 88 mcg 01/19/20 06:00 01/22/20 05:23 Levothyroxine Sodium 88 Mcg Tab PO 88 mcg 0600 NAFISA Administration Methylprednisolone Sodium Succinate 20 mg 01/18/20 23:59 01/22/20 15:38 Methylprednisolone Sod Succ 40 Mg Vial IVP 20 mg 0800,1600,2359 NAFISA Administration Ondansetron HCl 4 mg 01/18/20 10:04 01/21/20 04:27 Ondansetron Pf 4 Mg/2 Ml Vial IVP 4 mg Q6H PRN Administration Nausea/Vomiting Senna/Docusate Sodium 2 tab 01/18/20 10:04 01/21/20 04:27 Senokot S 8.6-50 Mg Tab PO 2 tab BID PRN Administration Constipation Sodium Chloride 10 ml 01/21/20 09:00 01/22/20 08:23 Flush - Normal Saline 10 Ml Syringe IVF 10 ml Q12HR NAFISA Administration - Exam General Appearance: NAD, awake alert Eye: PERRL, anicteric sclera ENT: normocephalic atraumatic, no oropharyngeal lesions Neck: supple, symmetric, no JVD, no thyromegaly, no carotid bruit Heart: RRR, no murmur, no gallops, no rubs Respiratory: CTAB, no wheezes, no rales, no ronchi, normal chest expansion Gastrointestinal: soft, non-tender, non-distended, normal bowel sounds Extremities: no cyanosis, no clubbing, no edema Skin: normal turgor, no lesions, no rashes Hosp A/P - Plan CTA: ground glass opacities This is an 84 year old who was recently diagnosed with COVID, received steroids and then readmitted for worsening respiratory failure Acute hypoxic respiratory failure secondary to COVID pneumonia - CTA showed ground glass opacities on admission, COVID + -continue cefepime. Will try to wean steroids to 20 mg BID - continue high flow nasal cannula Hypokalemia - potassium 3.4 on 01/20. Will recheck tomorrow Anemia - Hb 13.6 on 01/20. Will repeat tomorrow Hypothyroidism - continue levothyroxine Leukocytosis - resolved
[2020-01-23] MEDS: Albuterol 200 PUFF (6.7GM INHALER) INH SCH ×5 (02:24→23:51)
[2020-01-23] MEDS: Cefepime 1 GM in Sodium Chloride 0.9% 100 ML IVPB SCH ×2 (03:53→16:30)
[2020-01-23] MEDS: Senokot S 8.6-50 MG TAB PO PRN ×2 (03:54→16:31)
[2020-01-23] MEDS: hydrALAZINE 20 MG/ML VIAL SLOW IVP PRN (03:54)
[2020-01-23] MEDS: Guaifenesin DM 100-10/5 ML UDCUP PO PRN ×2 (03:54→08:13)
[2020-01-23] MEDS: Levothyroxine Sodium 88 MCG TAB PO SCH (04:27)
[2020-01-23] MEDS: Acetaminophen 325 MG TAB PO PRN (04:27)
[2020-01-23] MEDS ORDERED: Calcium Carbonate 500 MG ChewTAB PO PRN (05:31)
[2020-01-23] MEDS: Enoxaparin Sodium 40 MG/0.4 ML SYRINGE SC SCH (08:12)
[2020-01-23] MEDS: Aspirin Chewable 81 MG TAB PO SCH (08:12)
[2020-01-23] MEDS: Famotidine 20 MG TAB PO SCH ×2 (08:12→22:39)
[2020-01-23] MEDS: Benzonatate 100 MG CAP PO SCH ×3 (08:12→22:39)
[2020-01-23] MEDS: methylPREDNISolone Sod Succ 40 MG VIAL IVP SCH ×2 (08:13→22:39)
[2020-01-23 08:30] LABS: Hemoglobin 14.1 g/dL (14.0-18.0); Mean Corpuscular HGB CONC 33.1 g/dL (32.0-36.0); Mean Corpuscular Hemoglobin 31.8 pg (27.0-31.0); Mean Corpuscular Volume 96.2 fL (78.0-98.0); Mean Platelet Volume 7.3 fL (7.4-10.4); Platelet Count 185 thou/uL (130-400); RBC Distribution Width 11.7 % (11.5-14.5); Red Blood Cell (RBC) Count 4.44 mill/uL (4.70-6.10); White Blood Cell (WBC) Count 12.1 thou/uL (4.8-10.8)
[2020-01-23 08:53] LABS: Anion Gap 13 mmol/L (10-20); BUN (Urea Nitrogen) 17 mg/dL (8.4-25.7); Calc. Creatinine Clearance 88 mL/min (70-130); Calcium 7.8 mg/dL (7.8-10.44); Carbon Dioxide 24 mmol/L (23-31); Chloride 108 mmol/L (98-107); Glucose 119 mg/dL (83-110); Potassium 3.8 mmol/L (3.5-5.1); Sodium 141 mmol/L (136-145)
[2020-01-23 09:00] LABS: Troponin I 0.043 ng/mL (< 0.028)
[2020-01-23 11:27] LABS: Troponin I 0.043 ng/mL (< 0.028)
--- NOTE | 2020-01-23 16:06 | PDOC.HOSPP ---
- Subjective Encounter Date: 01/23/20 Encounter Time: 11:00 Subjective: F/u: COVID The patient says he feels fie. He still has dry cough. Oxygen sat was 95% on high flow, I have asked if this can be weaned - Objective Vital Signs & Weight: Vital Signs (12 hours) Temp Pulse Resp BP Pulse Ox 01/23/20 09:00 97.8 F 66 18 181/74 H 95 Weight Weight 187 lb I&O: 01/22/20 01/23/20 01/24/20 06:59 06:59 06:59 Intake Total 1410 730 Output Total 400 1000 Balance 1010 -270 Result Diagrams: 01/23/20 08:10 01/23/20 08:10 Hospitalist ROS - Review of Systems Constitutional: denies: fever, chills - Medication Medications: Active Medications Generic Name Dose Route Start Last Admin Trade Name Freq PRN Reason Stop Dose Admin Acetaminophen 650 mg 01/18/20 10:04 01/23/20 04:27 Acetaminophen 325 Mg Tab PO 650 mg Q4H PRN Administration Headache/Fever/Mild Pain (1-3) Albuterol Sulfate 2 puff 01/18/20 13:00 01/23/20 14:30 Albuterol 200 Puff (6.7gm Inhaler) INH 2 puff [id number] NAFISA Administration Aspirin 81 mg 01/19/20 09:00 01/23/20 08:12 Aspirin Chewable 81 Mg Tab PO 81 mg DAILY NAFISA Administration Benzonatate 100 mg 01/20/20 21:00 01/23/20 15:52 Benzonatate 100 Mg Cap PO 100 mg TID NAFISA Administration Calcium Carbonate 1,000 mg 01/23/20 05:31 01/23/20 05:37 Calcium Carbonate 500 Mg Chewtab PO 1,000 mg TID PRN Administration Indigestion Enoxaparin Sodium 40 mg 01/19/20 09:00 01/23/20 08:12 Enoxaparin Sodium 40 Mg/0.4 Ml Syringe SC 40 mg 0900 NAFISA Administration Famotidine 20 mg 01/18/20 21:00 01/23/20 08:12 Famotidine 20 Mg Tab PO 20 mg BID NAFISA Administration Guaifenesin/Dextromethorphan 15 ml 01/18/20 10:04 01/23/20 08:13 Guaifenesin Dm 100-10/5 Ml Udcup PO 15 ml Q4H PRN Administration Cough Hydralazine HCl 10 mg 01/20/20 05:09 01/23/20 03:54 Hydralazine 20 Mg/Ml Vial SLOW IVP 10 mg Q4H PRN Administration SBP>170 Cefepime HCl 1 gm/ Sodium 100 mls @ 200 mls/hr 01/18/20 16:00 01/23/20 03:53 Chloride IVPB 100 mls 0400,1600 NAFISA Administration Levothyroxine Sodium 88 mcg 01/19/20 06:00 01/23/20 04:27 Levothyroxine Sodium 88 Mcg Tab PO 88 mcg 0600 NAFISA Administration Methylprednisolone Sodium Succinate 20 mg 01/22/20 21:00 01/23/20 08:13 Methylprednisolone Sod Succ 40 Mg Vial IVP 20 mg BID NAFISA Administration Ondansetron HCl 4 mg 01/18/20 10:04 01/21/20 04:27 Ondansetron Pf 4 Mg/2 Ml Vial IVP 4 mg Q6H PRN Administration Nausea/Vomiting Senna/Docusate Sodium 2 tab 01/18/20 10:04 01/23/20 03:54 Senokot S 8.6-50 Mg Tab PO 2 tab BID PRN Administration Constipation Sodium Chloride 10 ml 01/21/20 09:00 01/23/20 08:13 Flush - Normal Saline 10 Ml Syringe IVF 10 ml Q12HR NAFISA Administration - Exam General Appearance: NAD, awake alert Eye: PERRL, anicteric sclera ENT: normocephalic atraumatic, no oropharyngeal lesions Neck: no JVD Heart: RRR, no murmur, no gallops, no rubs Respiratory: no wheezes, no rales, no ronchi Respiratory - other findings: slightly diminished at the bases Gastrointestinal: soft, non-tender, non-distended, normal bowel sounds, no hepatomegaly Extremities: no cyanosis, no clubbing, no edema Skin: normal turgor, no lesions, no rashes Hosp A/P - Plan CTA: ground glass opacities This is an 84 year old who was recently diagnosed with COVID, received steroids and then readmitted for worsening respiratory failure Acute hypoxic respiratory failure secondary to COVID pneumonia - CTA showed ground glass opacities on admission, COVID + -continue cefepime. Steroids weaned to 20 mg bid on 01/21 - continue high flow nasal cannula, attempt to wean down . Will repeat chest X ray today - continue with therapy Leukocytosis - WBC up to 12.1, could be from steroids. Will repeat chest X ray today Hypokalemia - resolved Anemia -resolved - Hypothyroidism - continue levothyroxine
--- NOTE | 2020-01-23 16:58 | RAD ---
PORTABLE CHEST: 01/23/20 HISTORY: COVID pneumonia. COMPARISON: 01/18/20 exam. FINDINGS: Heart size appears borderline. There has been a significant increase in the bilateral infiltrative karon ng changes. IMPRESSION: 1. Mild cardiomegaly. 2. Fairly significant worsening to the bilateral infiltrates. POS: YANET
[2020-01-24 01:06] VITALS: BP 167/79
[2020-01-24 01:23] LABS: Actual Bicarbonate (HCO3a) 21.8 mEq/L (22-28); Analyzer IN Cardio ER; Base Excess (BEa) -0.9 mEq/L (-2.0 to +3.0); CO2 Tension 31.2 mmHg (35.0-45.0); Calcium, Ionized (arterial) 1.13 mmol/L (1.12-1.30); Carboxyhemoglobin (COHb) 0.8 gm% (0.0-3.0); Hemoglobin (Hb) 15.1 g/dL (14.0-18.0); Potassium - ABG Lab 3.72 mmol/L (3.70-5.30); pH, Arterial 7.46 (7.35-7.45)
[2020-01-24 01:26] LABS: Puncture Site LBA
--- NOTE | 2020-01-24 01:53 | PDOC.EVN ---
Event Note - Event Note Event Note: nursing called, patient tachycardic, tachypneic, hypoxic on HighFlow NC. check abg and ekg, patient anticoagulated. Chem code only. Transfer to [facility] and start bipap. Repeat ABG 0600. Discussed with Dr. Jaziel Best.
[2020-01-24 04:06] LABS: Hemoglobin 14.6 g/dL (14.0-18.0); Mean Corpuscular Hemoglobin 31.1 pg (27.0-31.0); Mean Corpuscular Volume 94.4 fL (78.0-98.0); Mean Platelet Volume 7.4 fL (7.4-10.4); Platelet Count 219 thou/uL (130-400); RBC Distribution Width 11.8 % (11.5-14.5); Red Blood Cell (RBC) Count 4.67 mill/uL (4.70-6.10); White Blood Cell (WBC) Count 16.1 thou/uL (4.8-10.8)
[2020-01-24] MEDS: Cefepime 1 GM in Sodium Chloride 0.9% 100 ML IVPB SCH (04:16)
[2020-01-24] MEDS: Levothyroxine Sodium 88 MCG TAB PO SCH (07:14)
[2020-01-24] MEDS: Aspirin Chewable 81 MG TAB PO SCH (07:15)
[2020-01-24] MEDS: Famotidine 20 MG TAB PO SCH ×2 (07:15→21:34)
[2020-01-24] MEDS: Benzonatate 100 MG CAP PO SCH ×3 (07:15→21:34)
[2020-01-24] MEDS: methylPREDNISolone Sod Succ 40 MG VIAL IVP SCH (07:52)
[2020-01-24] MEDS: Enoxaparin Sodium 40 MG/0.4 ML SYRINGE SC SCH (07:53)
[2020-01-24] MEDS: Albuterol 200 PUFF (6.7GM INHALER) INH SCH ×2 (07:54→14:00)
[2020-01-24] MEDS ORDERED: Sodium Bicarb 50 MEQ/50 ML Abboject 8.4% SYRINGE ONE (10:14)
[2020-01-24] MEDS ORDERED: EPINEPHrine 1 MG/ML AMP ONE (10:14)
--- NOTE | 2020-01-24 10:55 | CON ---
DATE OF CONSULTATION: HISTORY OF PRESENT ILLNESS: Jose Cruz is an 84-year-old Arabic gentleman who has been in the hospital since the 3rd. Last night he had progressive respiratory failure, was transferred to the MICU. His pO2 was 49, pCO2 of on high-flow inspired FiO2 85% 5 L. He is combative. He is not putting his mask on. He is now on BiPAP. His saturations are 95%, but clearly somewhat encephalopathic. Additional information, he was diagnosed with tenorio infection almost 10 days ago. PAST MEDICAL HISTORY: He is deaf. Hypothyroidism. PREVIOUS SURGERIES: Apparently none. HOME MEDICINES: 1. Synthroid 88. 2. Decadron. 3. Aspirin. ALLERGIES: NONE. SOCIAL HISTORY: No alcohol or tobacco abuse apparently. PHYSICAL EXAMINATION: VITAL SIGNS: Temperature 98, pulse 101, blood pressure 140/89, saturations are . LUNGS: Rhonchi, crackles. CARDIAC: Normal S1, S2. No gallop. ABDOMEN: No masses. LABORATORY DATA: White count 09976, H and H unremarkable. His chemistry profile several days ago showed they were unremarkable. X-ray shows worsening bilateral pulmonary infiltrates. IMPRESSION: Respiratory failure, tenorio positive pneumonia, ARDS. PLAN: I have added high dose of steroids, doxycycline to his present regimen, inhaled steroids, high dose of Lovenox. Supportive care, PT. He is not to be intubated. I think his prognosis is grave. He has not had any remdesivir, but we will try and give him convalescent plasma, though it is possible it's effects may be marginal since he is 10 days out into his course of his disease. Consultation note, 70 minutes, 50% direct patient care. Job ID: [id number]
[2020-01-24] MEDS ORDERED: methylPREDNISolone Sod Succ 40 MG VIAL IVP SCH (12:00)
[2020-01-24] MEDS: Piperacillin/Tazobactam 3.375 GM in Sodium Chloride 0.9% 100 ML IVPB SCH ×2 (12:55→17:32)
[2020-01-24] MEDS ORDERED: Vancomycin 1 GM in Premix Bag 1 BAG IVPB SCH (13:00)
--- NOTE | 2020-01-24 17:25 | PDOC.HOSPP ---
- Subjective Encounter Date: 01/24/20 Encounter Time: 12:00 Subjective: Fu: KIM Was transferred to [facility] overnight after an ABG showed a PO2 of 40. The patient is laying in bed and not answering any questions and appears to be moaning. He is on high flow currently but was on BIPAP earlier - Objective Vital Signs & Weight: Vital Signs (12 hours) Temp Pulse Pulse Ox 01/24/20 14:44 90 L 01/24/20 13:00 99.1 F 01/24/20 09:00 98.5 F 01/24/20 08:26 101 H 01/24/20 08:00 91 L 01/24/20 05:00 98.8 F Weight Weight 187 lb Most Recent Monitor Data Heart Rate from ECG 91 NIBP 144/98 NIBP BP-Mean 113 Respiration from ECG 29 SpO2 93 I&O: 01/23/20 01/24/20 01/25/20 06:59 06:59 06:59 Intake Total 730 400 Output Total 1000 400 Balance -270 0 Result Diagrams: 01/24/20 03:43 01/23/20 08:10 Hospitalist ROS - Review of Systems Constitutional: denies: fever, chills - Medication Medications: Active Medications Generic Name Dose Route Start Last Admin Trade Name Freq PRN Reason Stop Dose Admin Acetaminophen 650 mg 01/18/20 10:04 01/23/20 04:27 Acetaminophen 325 Mg Tab PO 650 mg Q4H PRN Administration Headache/Fever/Mild Pain (1-3) Albuterol Sulfate 2 puff 01/18/20 13:00 01/24/20 07:54 Albuterol 200 Puff (6.7gm Inhaler) INH 2 puff [id number] NAFISA Administration Aspirin 81 mg 01/19/20 09:00 01/24/20 07:15 Aspirin Chewable 81 Mg Tab PO Not Given DAILY NAFISA Benzonatate 100 mg 01/20/20 21:00 01/24/20 13:04 Benzonatate 100 Mg Cap PO Not Given TID NAFISA Calcium Carbonate 1,000 mg 01/23/20 05:31 01/23/20 05:37 Calcium Carbonate 500 Mg Chewtab PO 1,000 mg TID PRN Administration Indigestion Famotidine 20 mg 01/18/20 21:00 01/24/20 07:15 Famotidine 20 Mg Tab PO Not Given BID NAFISA Guaifenesin/Dextromethorphan 15 ml 01/18/20 10:04 01/23/20 08:13 Guaifenesin Dm 100-10/5 Ml Udcup PO 15 ml Q4H PRN Administration Cough Hydralazine HCl 10 mg 01/20/20 05:09 01/23/20 03:54 Hydralazine 20 Mg/Ml Vial SLOW IVP 10 mg Q4H PRN Administration SBP>170 Piperacillin Sod/Tazobactam 100 mls @ 200 mls/hr 01/24/20 12:00 01/24/20 12:55 Sod 3.375 gm/ Sodium Chloride IVPB 100 mls Q6HR NAFISA Administration Vancomycin HCl 1 gm/ Device 200 mls @ 200 mls/hr 01/24/20 13:00 01/24/20 12:55 IVPB 200 mls 0100,1300 NAFISA Administration Levothyroxine Sodium 88 mcg 01/19/20 06:00 01/24/20 07:14 Levothyroxine Sodium 88 Mcg Tab PO Not Given 0600 [facility] Methylprednisolone Sodium Succinate 40 mg 01/24/20 12:00 01/24/20 12:56 Methylprednisolone Sod Succ 40 Mg Vial IVP 40 mg 0000,1200 NAFISA Administration Ondansetron HCl 4 mg 01/18/20 10:04 01/21/20 04:27 Ondansetron Pf 4 Mg/2 Ml Vial IVP 4 mg Q6H PRN Administration Nausea/Vomiting Senna/Docusate Sodium 2 tab 01/18/20 10:04 01/23/20 16:31 Senokot S 8.6-50 Mg Tab PO 2 tab BID PRN Administration Constipation Sodium Chloride 10 ml 01/21/20 09:00 01/24/20 07:54 Flush - Normal Saline 10 Ml Syringe IVF 10 ml Q12HR NAFISA Administration - Exam General Appearance: NAD, awake alert Eye: PERRL, anicteric sclera ENT: normocephalic atraumatic, no oropharyngeal lesions Neck: no JVD Heart: RRR, no murmur, no gallops, no rubs Respiratory: negative: no ronchi Respiratory - other findings: diminished breath sounds at the bases Gastrointestinal: soft, non-tender, non-distended, normal bowel sounds Extremities: no cyanosis, no clubbing, no edema Skin: normal turgor, no lesions, no rashes Neurological: cranial nerve grossly intact, normal sensation to touch, no weakness Hosp A/P - Plan CTA: ground glass opacities This is an 84 year old who was recently diagnosed with COVID, received steroids and then readmitted for worsening respiratory failure Acute hypoxic respiratory failure secondary to COVID pneumonia - CTA showed ground glass opacities on admission, COVID + - received cefepime from 01/17 to 01/23. However chest Xray 01/23 shows worsening pneumonia. WBC is up to 16, switched antibiotics to vancomycin and zosyn. Added doxycycline 01/23. Pulmonary has been consulted and are planning to try convalescent plasma Leukocytosis - scondary to worsening pneumonia - WBC increasing to 16, switched antibiotics to vancomycin, zosyn and doxycycline Hypothyroidism - continue levothyroxine Hypokalemia - resolved Anemia -resolved -
[2020-01-24] MEDS ORDERED: Mometasone 200 MCG/Formoterol 5 MCG 120 PUFF INHALER INH SCH (18:30)
[2020-01-24] MEDS ORDERED: Magnesium 2 GM/50 ML BAG (IN WATER) ONE (20:25)
[2020-01-24] MEDS ORDERED: Sodium Chloride 0.9% 250 ML IV SCH (20:30)
[2020-01-24] MEDS ORDERED: Magnesium 2 GM/50 ML 2 GM in Premix Bag 1 BAG IVPB SCH (20:45)
[2020-01-24 20:49] LABS: #Lymphocytes 0.5 thou/uL (1.20-3.40); #Monocytes 0.3 thou/uL (0.11-0.59); #Neutrophils 16.6 thou/uL (1.40-6.50); %Eosinophils 0.2 % (0.0-10.0); %Lymphocytes 2.7 % (21.0-51.0); %Monocytes 1.5 % (0.0-10.0); %Neutrophils 95.7 % (42.0-75.0); Hemoglobin 14.3 g/dL (14.0-18.0); Mean Corpuscular HGB CONC 33.3 g/dL (32.0-36.0); Mean Corpuscular Volume 96.2 fL (78.0-98.0); Platelet Count 154 thou/uL (130-400); RBC Distribution Width 11.8 % (11.5-14.5); Red Blood Cell (RBC) Count 4.47 mill/uL (4.70-6.10); White Blood Cell (WBC) Count 17.3 thou/uL (4.8-10.8)
[2020-01-24] MEDS ORDERED: Enoxaparin Sodium 40 MG/0.4 ML SYRINGE SC SCH (21:00)
[2020-01-24] MEDS ORDERED: Doxycycline 100 MG in Syringe 0 ML IVPB SCH (21:00)
[2020-01-24 21:05] LABS: Lactic Acid 3.4 mmol/L (0.5-2.2)
[2020-01-24 21:08] LABS: Anion Gap 18 mmol/L (10-20); BUN (Urea Nitrogen) 30 mg/dL (8.4-25.7); Calc. Creatinine Clearance 61 mL/min (70-130); Calcium 8.1 mg/dL (7.8-10.44); Carbon Dioxide 22 mmol/L (23-31); Chloride 108 mmol/L (98-107); Glucose 155 mg/dL (83-110); Magnesium 2.5 mg/dL (1.6-2.6); Potassium 4.1 mmol/L (3.5-5.1); Sodium 144 mmol/L (136-145)
--- NOTE | 2020-01-24 21:41 | RAD ---
XR Chest 1 View Portable History: Volume overload Comparison: Radiograph prior day Findings: Heart size is enlarged. Interstitial and alveolar opacities are similar. No pneumothorax. N o acute osseous abnormality. Impression: Similar examination of the chest.
[2020-01-24] MEDS ORDERED: Amiodarone 150 MG, Admixture Fee 1 EACH in Dextrose 5% in Water 100 ML IVPB SCH (21:45)
[2020-01-24] MEDS ORDERED: Amiodarone 450 MG, Admixture Fee 1 EACH in Dextrose 5% in Water 250 ML IVPB SCH (21:45)
--- NOTE | 2020-01-24 22:20 | PDOC.BPN ---
- Brief Progress Note Code Blue called Cardiac arrest CPR and ACLS performed. No intubation as per patient wishes. No ROSC. Pronounced at 2208. Dr Armando to sign certificate
[2020-01-24 22:45] LABS: CKMB 168.7 ng/mL (0-6.6)
[2020-01-25 02:18] VITALS: TEMP 98.3
--- NOTE | 2020-01-25 17:21 | PDOC.DS.DS ---
Provider - Provider Date of Admission: 01/18/20 08:58 Date of Discharge: 01/24/20 Admitting Provider: Nico Walton MD Consultations: Infectious Disease (Dr Logan Moran), Pulmonary (Sheldon Banks) Primary Care Physician: Krunal Roldan MD Course - Hospital Course Hospital Course: Discharge Diagnoses: 1. Acute hypoxic respiratory failure secondary to COVID pneumonia 2. Hypothyroidism 3. CAD 4. Hypokalemia 5. Anemia 6. Leukocytosis Brief HPI: This is an 84 year old male with history of hypothryoidism who p resented to the ER with worsening shortness of breath on exertion. He was found to have an oxygen level of 80% on room air. His CTA of his chest showed bilateral peripheral ground-glass opacities. He was given azithromycin and admitted for further workup Hospital Course: Acute hypoxic respiratory failure secondary to COVID pneumonia: the patient had a CTA on admission which showed bilateral ground glass opacities. BNP was 67. He was admitted to the medical floor and placed on high flow nasal cannula. He received IV cefepime from 01/17 to 01/23 and lovenox prophylactically. However his oxygen saturations decreased to 89% on high flow. His WBC increased to 12 on 01/22. Repeat chest X ray showed worsening bilateral infiltrates. He was switched to IV vancomycin and zosyn 01/23. ABG showed a pO2 of 49. He was transferred to the IMCU and placed on BIPAP. Troponins were repeated and showed only a mild elevation and the patient denied chest pain. Pulmonary was consulted and doxycycline was added to antibiotic regimen and dexamethasone was changed to IV solumedrol. The patient continued to be hypoxic on BIPAP and refused intubation. On 01/23 KATHRYN beasley was called. The patient went into torsades and vfib and was unresponsive to sternal rub. He was shocked multiple times and given magnesium. He refused intubation. The patient was pronounced at 22:08. Pertinent Studies: Chest CTA 01/17: peripheral groundglass opacities Chest X ray 01/22: mild cardiomegaly, fairly significant worsening to the bilateral infiltrates Chest X ray 01/23: heart is enlarged, interstitial and alveolar opacities are similar Resuscitation Status: 01/18/20 09:59 Resuscitation Status Routine Resuscitation Status: PRTL: Cardiac only Discussed with: d/w and patient, donot intubate - Labs Lab Results: 01/24/20 20:37 01/24/20 20:37 Abnormal Lab Results - Last 48 hrs 01/24/20 01:05: Bicarbonate Actual 21.8 L, ABG pH 7.46 H, ABG pCO2 31.2 L, ABG pO2 49.0 L*, ABG O2 Sat (Measured) 85.6 L*, ABG O2 Content 17.9 L, ABG Oxyhemoglobin 84.6 L, ABG Deoxyhemoglobin 14.2 H, A-a O2 Gradient 518.050 H 01/24/20 03:43: WBC 16.1 H, RBC 4.67 L, MCH 31.1 H 01/24/20 20:37: Chloride 108 H, Carbon Dioxide 22 L, BUN 30 H 01/24/20 20:37: Lactic Acid 3.4 H 01/24/20 20:37: WBC 17.3 H, RBC 4.47 L, MCH 32.0 H, Neutrophils % 95.7 H, Lymphocytes % 2.7 L, Neutrophils # 16.6 H, Lymphocytes # 0.5 L 01/24/20 20:37: B-Natriuretic Peptide 1967.1 H 01/24/20 20:37: CK-MB (CK-2) 168.7 H*, Troponin I 58.160 H* Microbiology - Entire Visit 01/18/20 07:26 Venous blood - Right Arm Blood Culture - Final NO GROWTH IN 5 DAYS 01/18/20 07:39 Venous blood - Left Arm Blood Culture - Final NO GROWTH IN 5 DAYS - Physical Exam Vitals: Weight Weight 187 lb Most Recent Monitor Data Heart Rate from ECG 122 NIBP 108/35 NIBP BP-Mean 59 Respiration from ECG 27 SpO2 98 Physical Exam: The patient was seen and examined on the day of discharge. The patient at 22:08 with no heart or lung sounds and not responsive to sternal rub. Plan - Discharge Medications Home Medications: Medication Instructions Recorded Confirmed Type Aspirin 325 mg PO DAILY 01/19/20 01/19/20 History Levothyroxine Sodium [Synthroid] 1 tab PO QAM 01/19/20 01/19/20 History Allergies: No Known Allergies Allergy (Unverified 01/18/20 10:32) - Follow up Plan Referrals: Krunal Roldan MD [Primary Care Provider] - Disposition: Quality - Care Measures CORE MEASURES:: N/A
== END 2020-01-24 22:08 | disposition expired | DRG 871 ==
LOC: ERS 06:57 → T4-B 08:58 → IMCU/EMU 01-24 03:23
PROVIDERS: ADMIT Internal Medicine; ATTEND Internal Medicine
PROC: 8E0ZXY6 Isolation (ICD-10-PCS; principal; 2020-01-18)
PROC: 5A12012 Performance of Cardiac Output, Single, Manual (ICD-10-PCS; 2020-01-24)
PROC: 5A0955A Assistance with Respiratory Ventilation, Greater than 96 Consecutive Hours, High Flow/Velocity Cannula (ICD-10-PCS; 2020-01-24)
PROC: 5A09357 Assistance with Respiratory Ventilation, Less than 24 Consecutive Hours, Continuous Positive Airway Pressure (ICD-10-PCS; 2020-01-24)
PROC: 5A2204Z Restoration of Cardiac Rhythm, Single (ICD-10-PCS; 2020-01-24)
PROC: 3E033XZ Introduction of Vasopressor into Peripheral Vein, Percutaneous Approach (ICD-10-PCS; 2020-01-24)
DX: A41.89 Other specified sepsis (principal); U07.1 COVID-19; J12.89 Other viral pneumonia; J96.01 Acute respiratory failure with hypoxia; D64.9 Anemia, unspecified; I25.10 Atherosclerotic heart disease of native coronary artery without angina pectoris; D72.829 Elevated white blood cell count, unspecified; E03.9 Hypothyroidism, unspecified; Z79.899 Other long term (current) drug therapy; Z79.82 Long term (current) use of aspirin; Z79.890 Hormone replacement therapy; E87.6 Hypokalemia; I46.9 Cardiac arrest, cause unspecified; I49.01 Ventricular fibrillation; H90.5 Unspecified sensorineural hearing loss
CPT/HCPCS: 36415; 36600; 71045; 71275; 80048; 80053; 82553; 82728; 82805; 83605; 83735; 83880; 84484; 85025; 85027; 85379; 86140; 86850; 86900; 86901; 87040; 93005; 93010; 94660; 96365; 96366; J0171; J0282; J0360; J0456; J0692; J1650; J2405; J2543; J2920; J3370; J3475; J3490; J7070; Q9967